=== PATIENT | male | born 1950 | race Caucasian/White ===

== ENCOUNTER 2021-09-07 06:25 | Day surgery (SDC) | payer OTHER ==
[~2021-09-07 06:25] MED LIST: Proparacaine 0.5% Ophth Soln 15 ML Bottle ONE
[2021-09-07] MEDS ORDERED: Sodium Chloride 0.9% 10 ML Syringe IV ONE (06:26)
[2021-09-07] MEDS ORDERED: Dexamethasone 4 MG/ML SDV IV ONE (06:26)
[2021-09-07] MEDS ORDERED: Midazolam 1 MG/ML 2 ML SDV IV ONE (06:26)
[2021-09-07] MEDS ORDERED: Timolol Maleate 0.5% Ophth Soln 5 ML Bottle EYERT ONE (06:30)
[2021-09-07] MEDS ORDERED: Acetaminophen/Codeine 300-30 MG Tab PO PRN (06:30)
[2021-09-07] MEDS ORDERED: Ondansetron 4 MG/2 ML SDV IVPUSH PRN (06:30)
[2021-09-07] MEDS ORDERED: Phenylephrine 10% Ophth Soln 5 ML Bot EYERT ONE (06:30)
[2021-09-07] MEDS ORDERED: Cataract Ophth Solution EYERT ONE (06:30)
[2021-09-07] MEDS ORDERED: Povidone-Iodine 5% Sterile Ophth Soln 30 ML Bottle EYERT ONE ×2 (06:30→08:15)
[2021-09-07] MEDS ORDERED: Tropicamide 1% Ophth Soln 15 ML Bottle EYERT ONE (06:30)
[2021-09-07] MEDS ORDERED: Moxifloxacin 0.5% Ophth Soln 3 ML Bottle EYERT ONE (06:30)
[2021-09-07] MEDS ORDERED: Proparacaine 0.5% Ophth Soln 15 ML Bottle EYERT ONE (06:30)
[2021-09-07] MEDS ORDERED: Acetaminophen 325 MG Tab PO PRN (06:30)
[2021-09-07] MEDS ORDERED: Sodium Chloride 0.9% 10 ML Syringe FLUSH PRN (06:30)
[2021-09-07] MEDS ORDERED: Tetracaine HCl/PF 0.5% 4 ML Bottle EYERT ONE (08:14)
[2021-09-07] MEDS ORDERED: Lidocaine 1% 30 ML SDV ONE (08:15)
[2021-09-07] MEDS ORDERED: Apraclonidine 0.5% Ophth Soln 5 ML Bot EYERT ONE (08:15)
[2021-09-07] MEDS ORDERED: Diclofenac Sodium 0.1% Ophth Soln 5 ML Bottle EYERT ONE (08:16)
[2021-09-07] MEDS ORDERED: Balanced Salt Solution Ophth Irrig 500 ML Bottle IOCULAR ONE (08:16)
[2021-09-07] MEDS ORDERED: Dexamethasone/Neomycin/Polymyxin B Ophth Oint 3.5 GM Tube EYERT ONE (08:16)
[2021-09-07] MEDS ORDERED: Chondroitin Sulfate/Hyaluronate Sodium Ophth Inj 0.5 ML Syringe IOCULAR ONE ×2 (08:17)
[2021-09-07] MEDS ORDERED: Dexamethasone 4 MG/ML SDV IOCULAR ONE (08:17)
[2021-09-07] MEDS ORDERED: Vancomycin 500 MG SDV EYERT ONE (08:17)
== END 2021-09-07 09:25 | disposition home or self-care (01) ==
LOC: DL.SDS 06:25
PROVIDERS: ATTEND Ophthalmology
DX: H25.811 Combined forms of age-related cataract, right eye (principal); E78.2 Mixed hyperlipidemia; I25.10 Atherosclerotic heart disease of native coronary artery without angina pectoris; I73.9 Peripheral vascular disease, unspecified; J43.1 Panlobular emphysema; Z79.899 Other long term (current) drug therapy; Z79.82 Long term (current) use of aspirin; E78.5 Hyperlipidemia, unspecified; Z90.49 Acquired absence of other specified parts of digestive tract; Z98.890 Other specified postprocedural states; Z87.891 Personal history of nicotine dependence
CPT/HCPCS: 00144; A9270-GY; J1100; J2250; J3370; J3490; V2632

== ENCOUNTER 2021-09-21 06:36 | Day surgery (SDC) | payer OTHER ==
[~2021-09-21 06:36] MED LIST changes: +Acetaminophen 325 MG Tab PO PRN; +Acetaminophen/Codeine 300-30 MG Tab PO PRN; +Cataract Ophth Solution EYELF ONE; +Moxifloxacin 0.5% Ophth Soln 3 ML Bottle EYELF ONE; +Ondansetron 4 MG/2 ML SDV IVPUSH PRN; +Phenylephrine 10% Ophth Soln 5 ML Bot EYELF ONE; +Povidone-Iodine 5% Sterile Ophth Soln 30 ML Bottle EYELF ONE; +Proparacaine 0.5% Ophth Soln 15 ML Bottle EYELF ONE; -Proparacaine 0.5% Ophth Soln 15 ML Bottle ONE; +Sodium Chloride 0.9% 10 ML Syringe FLUSH PRN; +Timolol Maleate 0.5% Ophth Soln 5 ML Bottle EYELF ONE; +Tropicamide 1% Ophth Soln 15 ML Bottle EYELF ONE
[2021-09-21] MEDS ORDERED: Sodium Chloride 0.9% 10 ML Syringe IV ONE (06:37)
[2021-09-21] MEDS ORDERED: Midazolam 1 MG/ML 2 ML SDV IV ONE (06:37)
[2021-09-21] MEDS ORDERED: Dexamethasone 4 MG/ML SDV IV ONE (06:37)
[2021-09-21] MEDS ORDERED: Povidone-Iodine 5% Sterile Ophth Soln 30 ML Bottle EYELF ONE (07:55)
[2021-09-21] MEDS ORDERED: Tetracaine HCl/PF 0.5% 4 ML Bottle EYELF ONE (07:55)
[2021-09-21] MEDS ORDERED: Lidocaine 1% 30 ML SDV ONE (07:55)
[2021-09-21] MEDS ORDERED: Dexamethasone/Neomycin/Polymyxin B Ophth Oint 3.5 GM Tube EYELF ONE (07:56)
[2021-09-21] MEDS ORDERED: Apraclonidine 0.5% Ophth Soln 5 ML Bot EYELF ONE (07:56)
[2021-09-21] MEDS ORDERED: Balanced Salt Solution Ophth Irrig 500 ML Bottle IOCULAR ONE (07:56)
[2021-09-21] MEDS ORDERED: Diclofenac Sodium 0.1% Ophth Soln 5 ML Bottle EYELF ONE (07:56)
[2021-09-21] MEDS ORDERED: Vancomycin 500 MG SDV EYELF ONE (07:57)
[2021-09-21] MEDS ORDERED: Chondroitin Sulfate/Hyaluronate Sodium Ophth Inj 0.5 ML Syringe IOCULAR ONE (07:57)
[2021-09-21] MEDS ORDERED: Dexamethasone 4 MG/ML SDV IOCULAR ONE (08:03)
== END 2021-09-21 09:07 | disposition home or self-care (01) ==
LOC: DL.SDS 06:36
PROVIDERS: ATTEND Ophthalmology
DX: H25.812 Combined forms of age-related cataract, left eye (principal); E78.2 Mixed hyperlipidemia; I71.4 Abdominal aortic aneurysm, without rupture; I73.9 Peripheral vascular disease, unspecified; I25.118 Atherosclerotic heart disease of native coronary artery with other forms of angina pectoris; F17.210 Nicotine dependence, cigarettes, uncomplicated; J43.1 Panlobular emphysema; Z79.82 Long term (current) use of aspirin; Z79.899 Other long term (current) drug therapy
CPT/HCPCS: A9270-GY; J1100; J2250; J3370; J3490; V2632